=== PATIENT | female | born 1985 | race Caucasian/White ===

== ENCOUNTER 2021-01-22 15:17 | Outpatient (CLI) | payer OTHER ==
--- NOTE | 2021-01-22 16:58 | Ultrasound Report ---
PROCEDURE: OB First Trimester INDICATIONS: + PREG TEST OUTSIDE/PRIOR DATING DATA: Last menstrual period (LMP): 11/18/2020. LMP-based estimated date of delivery (DIANA): 08/25/2021. First dating scan (date and location): 01/22/2021. Estimated date of delivery (DIANA) from first dating scan: 08/23/2021. The below data below was generated using the ultrasound DIANA of 08/23/2021 TECHNIQUE: Real-time scanning was performed of the fetus and maternal pelvic organs, with image documentation. COMPARISON: None. FINDINGS: Embryo: Single living intrauterine fetus is present with a crown-rump length measuring 2.7 cm, 9 wee ks 4 days. heart rate measures 169 bpm. Perigestational hemorrhage measuring 2.2 x 2.5 x 2.6 cm . Measurement variability in dating: +/- 4 weeks by LMP, +/- 7 days by mean sac diameter (use before 6 weeks gestation if crown-rump length not able to be measured), +/- 5 days by crown-rump length (6-12 weeks gestation). Maternal organs: Ovaries unremarkable except for a presumed left-sided corpus luteum.. IMPRESSION: Single living intrauterine fetus with a gestational age measuring 9 weeks and 4 days. Ultrasound DIANA of 08/23/2021. Perigestational hemorrhage. Reviewed by: Ralph Benavidez MD on 01/22/2021 4:56 PM PDT Approved by: Ralph Benavidez MD on 01/22/2021 4:56 PM PDT Station ID: [id number]
== END 2021-01-22 15:18 | disposition home or self-care (01) ==
LOC: DI 15:17
PROVIDERS: ATTEND Obstetrics & Gynecology
DX: O20.8 Other hemorrhage in early pregnancy (principal); Z3A.09 9 weeks gestation of pregnancy

== ENCOUNTER 2021-01-29 08:00 | Outpatient (CLI) | payer OTHER ==
[2021-01-29 20:46] LABS: CHLAMYDIA TRACHOMATIS DNA NEGATIVE (NEGATIVE); NEISSERIA GONORRHOEAE DNA NEGATIVE (NEGATIVE); TRICHOMONAS VAGINALIS DNA NEGATIVE (NEGATIVE)
== END 2021-01-29 23:59 | disposition home or self-care (01) ==
LOC: LAB.WC 08:00
PROVIDERS: ATTEND Obstetrics & Gynecology
DX: Z11.3 Encounter for screening for infections with a predominantly sexual mode of transmission (principal)
CPT/HCPCS: 87491; 87591; 87661

== ENCOUNTER 2021-01-30 13:57 | Outpatient (CLI) | payer OTHER ==
[2021-01-30 14:12] LABS: MUDS CUTOFF CONCENTRATIONS CUTOFF CONC BELOW:
[2021-01-30 14:25] LABS: BASOPHILS % (AUTO) 0.1 %; EOSINOPHILS % (AUTO) 0.5 %; HCT - HEMATOCRIT 34.8 % (37.0-47.0); HGB - HEMOGLOBIN 11.7 g/dL (12.0-16.0); LYMPHOCYTES # (AUTO) 2.2 10^3/uL (1.5-3.5); MEAN CORPUSCULAR HGB CONC 33.6 g/dL (32.0-36.0); MEAN CORPUSCULAR VOLUME 92.1 fL (81.0-99.0); MEAN PLATELET VOLUME 9.6 fL (7.9-10.8); MONOCYTES # (AUTO) 0.4 10^3/uL (0.0-1.0); MONOCYTES % (AUTO) 5.1 %; NEUTROPHILS # (AUTO) 5.4 10^3/uL (1.5-6.6); NEUTROPHILS % (AUTO) 67.1 %; PLT - PLATELET COUNT 257 10^3/uL (130-450); RED BLOOD COUNT 3.78 10^6/uL (4.20-5.40); RED CELL DISTRIBUTION WIDTH 12.5 % (12.0-15.0)
[2021-01-30 14:27] LABS: BILIRUBIN,URINE NEGATIVE (NEGATIVE); GLUCOSE, URINE (UA) NEGATIVE (NEGATIVE); KETONES,URINE (UA) NEGATIVE (NEGATIVE); LEUKOCYTE ESTERASE, URINE NEGATIVE (NEGATIVE); NITRITE,URINE NEGATIVE (NEGATIVE); OCCULT BLOOD,URINE NEGATIVE (NEGATIVE); PROTEIN,URINE NEGATIVE (NEGATIVE); UROBILINOGEN,URINE 0.2 (NORMAL) E.U./dL (NORMAL)
[2021-01-30 14:28] LABS: BACTERIA,URINE None Seen /HPF (None Seen); CLARITY,URINE CLEAR (CLEAR); MUCUS,URINE Few Strands; RBC,URINE 0-5 /HPF (0-5); SQUAMOUS EPITHELIAL CELL,UR RARE Squamous (<= Few); WBC,URINE 0-3 /HPF (0-5)
[2021-01-30 14:35] LABS: AMPHETAMINE SCREEN,URINE NEGATIVE (NEGATIVE); BARBITURATE SCREEN,UR NEGATIVE (NEGATIVE); BENZODIAZEPINES SCREEN, URINE NEGATIVE (NEGATIVE); COCAINE SCREEN URINE NEGATIVE (NEGATIVE); METHADONE SCREEN, URINE NEGATIVE (NEGATIVE); METHAMPHETAMINES SCREEN, URINE NEGATIVE (NEGATIVE); OPIATE SCREEN, URINE NEGATIVE (NEGATIVE); OXYCODONE SCREEN, URINE NEGATIVE (NEGATIVE); PROPOXYPHENE SCREEN, URINE NEGATIVE (NEGATIVE); THC CANNABINOID SCREEN, URINE NEGATIVE (NEGATIVE); TRICYCLIC ANTIDEPRESSANT,URINE NEGATIVE (NEGATIVE)
[2021-01-30 14:50] LABS: % IRON SATURATION 22 % (20-50); IRON 75 ug/dL (28-170); TOTAL IRON BINDING CAPACITY 344 ug/dL (250-450); TRANSFERRIN 246 mg/dL (192-382)
[2021-01-30 14:57] LABS: THYROID STIMULATING HORMONE 0.85 uIU/mL (0.34-5.60)
[2021-01-30 15:02] LABS: FERRITIN 24.6 ng/mL (11.0-306.8)
[2021-01-31 12:43] LABS: HEPATITIS B SURFACE ANTIGEN NON-REACTIVE (NON-REACTIVE); HEPATITIS C ANTIBODY NON-REACTIVE (NON-REACTIVE)
[2021-01-31 16:07] LABS: HIV AG/AB 4TH GEN NON-REACTIVE (NON-REACTIVE)
== END 2021-01-30 13:58 | disposition home or self-care (01) ==
LOC: LAB 13:57
PROVIDERS: ATTEND Obstetrics & Gynecology
DX: O99.019 Anemia complicating pregnancy, unspecified trimester (principal); D64.9 Anemia, unspecified; Z36.89 Encounter for other specified antenatal screening; Z13.21 Encounter for screening for nutritional disorder; O99.891 Other specified diseases and conditions complicating pregnancy; R53.83 Other fatigue; O99.340 Other mental disorders complicating pregnancy, unspecified trimester; F32.9 Major depressive disorder, single episode, unspecified
CPT/HCPCS: 36415; 80306; 81001; 82306; 82728; 83540; 84443; 84466; 85025; 86592; 86762; 86787; 86803; 86850; 86900; 86901; 87086; 87340; 87389

== ENCOUNTER 2021-04-07 07:55 | Outpatient (CLI) | payer OTHER ==
--- NOTE | 2021-04-07 15:45 | Ultrasound Report ---
PROCEDURE: OB Detailed Eval INDICATIONS: SUPERVISION OF NORMAL OUTSIDE/PRIOR DATING DATA: Last menstrual period (LMP): 11/18/2020. LMP-based estimated date of delivery (DIANA): 08/25/2021. First dating scan (date and location): 01/22/2021. Estimated date of delivery (DIANA) from first dating scan: 08/23/2021. The below data below was generated using the ultrasound DIANA of 08/23/2021 TECHNIQUE: Real-time scanning was performed of the fetus, with image documentation and biometric measurements. COMPARISON: 01/22/2021 FINDINGS: General: A single live intrauterine gestation is present. Presentation: Variable, transverse Placenta: Placental position is anterior, without previa. Amniotic fluid index: 12.2 cm, within normal limits for gestational age. heart rate: 144 beats per minute. Maternal cervical canal: 5.9 cm long; normal length is 2.5 cm or more. biometrics: Biparietal diameter: 4.5 cm equals 19 weeks 4 days Head circumference: 12.5 cm equals 20 weeks 0 days Abdominal circumference: 15.3 cm across 20 weeks 4 days Femur length: 3.4 cm sequence 20 weeks 4 days Estimated gestational age from initial scan: 20 weeks 2 days Composite gestational age from present scan: 20 weeks 1 day Estimated weight and percentile: 354 g, 55th percentile Measurement variability in biometric dating: +/- 10 days from 12-20 weeks gestation, +/- 2 weeks from 20-30 weeks gestation, +/- 3 weeks at 30 weeks gestation or later. Anatomic survey: Neuro: Ventricles are normal at less than 10 mm. Cisterna magna is normal at 3-11 mm. Cerebellum i s normal in size and morphology. Nuchal skin fold: Normal at less than 6 mm between 14 and 20 weeks gestational age. Face: Nose and lips, facial profile are normal. Spine: No evidence for spina bifida. Heart: 4-chambered heart is present, with normal ventricular outflow tracts. Diaphragm: Diaphragm is intact. Stomach: Left-sided stomach is present. Kidneys: No hydronephrosis. Normal is less than 5 mm in 2nd trimester, less than 7 mm in 3rd trimester. Cord: 3 vessel cord has orthotopic insertion. Bladder: Normal in size. Extremities: All 4 extremities are visualized. IMPRESSION: Single live intrauterine . Normal interval growth compared to the prior ultrasound examination. No anatomic abnormalities are identified. Reviewed by: Alvaro Brooke MD on 04/07/2021 2:44 PM [place] Approved by: Alvaro Brooke MD on 04/07/2021 2:44 PM [place] Station ID: [id number]
== END 2021-04-07 07:56 | disposition home or self-care (01) ==
LOC: DI 07:55
PROVIDERS: ATTEND Obstetrics & Gynecology
DX: Z34.82 Encounter for supervision of other normal pregnancy, second trimester (principal)

== ENCOUNTER 2021-05-06 11:30 | Outpatient (CLI) | payer OTHER ==
[2021-05-06 11:44] VITALS: BP 113/67
--- NOTE | 2021-05-06 12:17 | PROVIDER PROGRESS NOTE ---
- HPI Chief Complaint: Maternal trauma (Patient had a fall doing the splits and landing on left hip and left side of abdomen, about 8 steps. Patient couldn't feel her feet coming down the stairs. This occurred at 9:15am.) Current : Current EDU 08/23/21 Gestation 24 Weeks and 3 Days 5 Para 4 Vital Signs Temperature 98.2 F 05/06/21 11:44 Heart Rate 73 05/06/21 11:44 Respiratory Rate 16 05/06/21 11:44 Blood Pressure 113/67 05/06/21 11:44 O2 Saturation 99 05/06/21 11:44 Temperature 98.2 F 05/06/21 11:44 Heart Rate 73 05/06/21 11:44 Respiratory Rate 16 05/06/21 11:44 Blood Pressure 113/67 05/06/21 11:44 O2 Saturation 99 05/06/21 11:44 - Exam 35 yo 24 3/7 weeks, experienced numb feet while coming down the stairs this morning at 9:15am. Patient states her left foot went out in front and her right foot behind her and she did the splits down 8 steps. She states her left arm, left hip and left side of abdomen landed on the bottom step. She did not hit the tile floor because she had two bags of [employer] candy there. Patient is feeling good movement. O: General: Patient is resting in stretcher without acute distress. Chest: Clear to auscultation. Good breath sounds in all demarco. Abdomen: Soft, good bowel sounds in all quadrants. Non-tender to palpation. No guarding or rebound. No visual bruising on abdomen. Extremities: No edema, no calf tenderness. Monitor strip: Baseline 140 with moderate variability and appropriate accelerations for gestational age. No decelerations or contractions. Ultrasound performed by [facility]. Placenta is anterior and appears normal without signs of abruption. CATHERINE is 15cm. Acitve fetus throughout ultrasound. A-IUP 24 3 with trauma to left side of Abdomen at 9:15 am. Doing well. P- Discussed results and that everything appears okay. Patient to check on Chiropracter and or massage therapy. Patient may use Tylenol for pain and take bath. Discussed she may be sore tomorrow. Patient to try to stretch back and consider support belt. Follow-up as scheduled on 05/22/21/ Call for any problems.
--- NOTE | 2021-05-06 13:40 | PROCEDURE REPORT ---
- HPI Diagnosis/Indication for NST: Other (Patient had a fall this morning.) Current EDU 08/23/21 Gestation 24 Weeks and 3 Days 5 Para 4 Vital Signs Temperature 98.2 F 05/06/21 11:44 Heart Rate 73 05/06/21 11:44 Respiratory Rate 16 05/06/21 11:44 Blood Pressure 113/67 05/06/21 11:44 O2 Saturation 99 05/06/21 11:44 Temperature 98.2 F 05/06/21 11:44 Heart Rate 73 05/06/21 11:44 Respiratory Rate 16 05/06/21 11:44 Blood Pressure 113/67 05/06/21 11:44 O2 Saturation 99 05/06/21 11:44 Patient had a fall this morning. She did splits down stairs due to not being able to feel her feet. Patient reports good movement. Patient denies SROM, Vaginal bleeding or contractions. NST: Baseline 140's with moderate variability and 10X10 accelerations. No decelerations. No contractions seen. Reactive NST and Category I monitor strip.
--- NOTE | 2021-05-06 13:44 | Ultrasound Report ---
PROCEDURE: OB Limited INDICATIONS: Fell down 8 feet of stairs DIANA 08/23/2021 OUTSIDE/PRIOR DATING DATA: Last menstrual period (LMP): 11/18/2020. LMP-based estimated date of delivery (DIANA): 08/25/2021. First dating scan (date and location): 01/22/2021. Estimated date of delivery (DIANA) from first dating scan: 08/23/2021. The below data below was generated using the ultrasound DIANA of 08/23/2021 TECHNIQUE: Real-time scanning was performed of the fetus, with image documentation. COMPARISON: OB ultrasound 01/22/2021, 04/07/2021 FINDINGS: A single living intrauterine gestation is present. Presentation: Breech Placenta: Placental position is anterior, without previa or abruption. Amniotic fluid index: 15.8 cm, within normal limits for gestational age. Largest pocket measures 5.2 cm. heart rate: 144 beats per minutes. Maternal cervical canal: 5.9 cm long; normal length is 2.5 cm or more. Estimated gestational age from initial scan: 24 weeks 3 days. IMPRESSION: 1. Single live intrauterine . 2. No evidence of placental abruption. Reviewed by: Giulia Monzon MD on 05/06/2021 1:43 PM PDT Approved by: Giulia Monzon MD on 05/06/2021 1:43 PM PDT Station ID: [id number]
== END 2021-05-06 13:40 | disposition home or self-care (01) ==
LOC: WFO 11:30 → FBP 11:33 → WFO 13:40
PROVIDERS: ATTEND Obstetrics & Gynecology
DX: O9A.212 Injury, poisoning and certain other consequences of external causes complicating pregnancy, second trimester (principal); S39.91XA Unspecified injury of abdomen, initial encounter; Z3A.24 24 weeks gestation of pregnancy; W10.8XXA Fall (on) (from) other stairs and steps, initial encounter
CPT/HCPCS: 99213

== ENCOUNTER 2021-06-16 09:44 | Outpatient (CLI) | payer OTHER ==
[2021-06-16 11:26] LABS: HCT - HEMATOCRIT 28.8 % (37.0-47.0); MEAN CORPUSCULAR HEMOGLOBIN 27.4 pg (27.0-31.0); MEAN CORPUSCULAR HGB CONC 31.3 g/dL (32.0-36.0); MEAN CORPUSCULAR VOLUME 87.5 fL (81.0-99.0); MEAN PLATELET VOLUME 9.9 fL (7.9-10.8); RED BLOOD COUNT 3.29 10^6/uL (4.20-5.40); RED CELL DISTRIBUTION WIDTH 12.6 % (12.0-15.0); WHITE BLOOD COUNT 8.6 x10^3/uL (4.8-10.8)
== END 2021-06-16 09:45 | disposition home or self-care (01) ==
LOC: LAB 09:44
PROVIDERS: ATTEND Obstetrics & Gynecology
DX: Z34.80 Encounter for supervision of other normal pregnancy, unspecified trimester (principal)
CPT/HCPCS: 36415; 82950; 85027

== ENCOUNTER 2021-07-07 09:22 | Outpatient (CLI) | payer OTHER ==
[2021-07-07 09:56] LABS: HCT - HEMATOCRIT 34.2 % (37.0-47.0); MEAN CORPUSCULAR HGB CONC 32.2 g/dL (32.0-36.0); MEAN PLATELET VOLUME 10.2 fL (7.9-10.8); RED BLOOD COUNT 3.93 10^6/uL (4.20-5.40); RED CELL DISTRIBUTION WIDTH 15.5 % (12.0-15.0); WHITE BLOOD COUNT 7.9 x10^3/uL (4.8-10.8)
[2021-07-07 10:35] LABS: % IRON SATURATION 16 % (20-50); IRON 88 ug/dL (28-170); TOTAL IRON BINDING CAPACITY 545 ug/dL (250-450); TRANSFERRIN 389 mg/dL (192-382)
== END 2021-07-07 09:23 | disposition home or self-care (01) ==
LOC: LAB 09:22
PROVIDERS: ATTEND Obstetrics & Gynecology
DX: O99.019 Anemia complicating pregnancy, unspecified trimester (principal); D64.9 Anemia, unspecified
CPT/HCPCS: 36415; 82728; 83540; 84466; 85027

== ENCOUNTER 2021-07-17 18:39 | Outpatient (CLI) | payer OTHER ==
--- NOTE | 2021-07-18 11:33 | Ultrasound Report ---
PROCEDURE: OB F/U or Repeat INDICATIONS: SCREENING FOR MACROXOMIA OUTSIDE/PRIOR DATING DATA: Last menstrual period (LMP): 11/16/2020. LMP-based estimated date of delivery (DIANA): 08/25/2021. First dating scan (date and location): 01/22/2021. Estimated date of delivery (DIANA) from first dating scan: 08/23/2021. The below data below was generated using the ultrasound DIANA of 521 TECHNIQUE: Real-time scanning was performed of the fetus, with image documentation and biometric measurements. Endovaginal scanning: Not performed COMPARISON: Ultrasound dated 01/22/2021, 04/07/2021, 05/16/2021, 07/17/2021. FINDINGS: General: A single living intrauterine gestation is present. Presentation: Breech Placenta: Placental position is anterior, without previa. Amniotic fluid index: 15.1 cm, , within normal limits. Largest pocket measures 4.9 cm heart rate: 136 beats per minute. Maternal cervical canal: 5.0 cm long; normal length is 2.5 cm or more. biometrics: Biparietal diameter: 8.73 cm, 35 weeks 2 days Head circumference: 32.85 cm, 37 weeks 2 days Abdominal circumference: 33.5 370, 37 weeks 3 days Femur length: 7.01 cm, 36 weeks 0 days Estimated gestational age from initial scan: 34 weeks 5 days. Composite gestational age from present scan: 36 weeks 4 days Estimated weight and percentile: 3037 g, 94th percentile Measurement variability in biometric dating: +/- 10 days from 12-20 weeks gestation, +/- 2 weeks from 20-30 weeks gestation, +/- 3 weeks at 30 weeks gestation or more. Other: Not applicable. IMPRESSION: Single living intrauterine fetus in breech presentation. Normal CATHERINE Estimated weight at the 94th percentile, which is suspicious for macrosomia. Previously t his measured 55th percentile on 04/07/2021. Reviewed by: Ralph Benavidez MD on 07/18/2021 11:32 AM PST Approved by: Ralph Benavidez MD on 07/18/2021 11:32 AM PST Station ID: [id number]
== END 2021-07-17 18:40 | disposition home or self-care (01) ==
LOC: DI 18:39
PROVIDERS: ATTEND Obstetrics & Gynecology
DX: Z36.88 Encounter for antenatal screening for fetal macrosomia (principal); O32.1XX0 Maternal care for breech presentation, not applicable or unspecified; Z3A.36 36 weeks gestation of pregnancy

== ENCOUNTER 2021-07-30 08:00 | Outpatient (CLI) | payer OTHER | END 2021-07-30 23:59 | disposition home or self-care (01) | LOC: LAB.WC 08:00 | PROVIDERS: ATTEND Obstetrics & Gynecology | DX: Z36.85 Encounter for antenatal screening for Streptococcus B (principal) | CPT/HCPCS: 87797 ==

== ENCOUNTER 2021-07-30 10:01 | Outpatient (CLI) | payer OTHER ==
[2021-07-30 10:29] LABS: HCT - HEMATOCRIT 36.6 % (37.0-47.0); HGB - HEMOGLOBIN 11.9 g/dL (12.0-16.0); MEAN CORPUSCULAR HEMOGLOBIN 28.2 pg (27.0-31.0); MEAN CORPUSCULAR HGB CONC 32.5 g/dL (32.0-36.0); MEAN CORPUSCULAR VOLUME 86.7 fL (81.0-99.0); MEAN PLATELET VOLUME 10.2 fL (7.9-10.8); RED BLOOD COUNT 4.22 10^6/uL (4.20-5.40); RED CELL DISTRIBUTION WIDTH 16.2 % (12.0-15.0); WHITE BLOOD COUNT 8.8 x10^3/uL (4.8-10.8)
== END 2021-07-30 10:02 | disposition home or self-care (01) ==
LOC: LAB 10:01
PROVIDERS: ATTEND Obstetrics & Gynecology
DX: O99.019 Anemia complicating pregnancy, unspecified trimester (principal); D64.9 Anemia, unspecified
CPT/HCPCS: 36415; 85027

== ENCOUNTER 2021-08-18 10:18 | Outpatient (CLI) | payer OTHER ==
[2021-08-18 10:52] LABS: BASOPHILS % (AUTO) 0.2 %; EOSINOPHILS % (AUTO) 0.5 %; HGB - HEMOGLOBIN 12.1 g/dL (12.0-16.0); LYMPHOCYTES # (AUTO) 1.8 10^3/uL (1.5-3.5); LYMPHOCYTES % (AUTO) 21.8 %; MEAN CORPUSCULAR HEMOGLOBIN 28.2 pg (27.0-31.0); MEAN CORPUSCULAR HGB CONC 32.7 g/dL (32.0-36.0); MEAN CORPUSCULAR VOLUME 86.2 fL (81.0-99.0); MEAN PLATELET VOLUME 11.3 fL (7.9-10.8); MONOCYTES # (AUTO) 0.5 10^3/uL (0.0-1.0); MONOCYTES % (AUTO) 6.6 %; NEUTROPHILS # (AUTO) 5.7 10^3/uL (1.5-6.6); NEUTROPHILS % (AUTO) 70.2 %; PLT - PLATELET COUNT 200 10^3/uL (130-450); RED BLOOD COUNT 4.29 10^6/uL (4.20-5.40); RED CELL DISTRIBUTION WIDTH 15.3 % (12.0-15.0); WHITE BLOOD COUNT 8.2 x10^3/uL (4.8-10.8)
[2021-08-18 11:05] LABS: CALCIUM 9.1 mg/dL (8.5-10.3); CREATININE 0.7 mg/dL (0.4-1.0); POTASSIUM 3.8 mmol/L (3.5-5.0)
== END 2021-08-18 10:19 | disposition home or self-care (01) ==
LOC: LAB 10:18
PROVIDERS: ATTEND Obstetrics & Gynecology
DX: Z01.812 Encounter for preprocedural laboratory examination (principal); O32.1XX0 Maternal care for breech presentation, not applicable or unspecified; Z20.822 Contact with and (suspected) exposure to COVID-19
CPT/HCPCS: 36415; 80048; 85025; 86850; 86900; 86901; 86920

== ENCOUNTER 2021-08-19 05:08 | Inpatient (IN) | payer OTHER ==
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
[2021-08-19 06:48] LABS: BASOPHILS % (AUTO) 0.1 %; EOSINOPHILS % (AUTO) 0.5 %; HCT - HEMATOCRIT 34.8 % (37.0-47.0); HGB - HEMOGLOBIN 11.5 g/dL (12.0-16.0); LYMPHOCYTES % (AUTO) 27.1 %; MEAN CORPUSCULAR HEMOGLOBIN 28.5 pg (27.0-31.0); MEAN CORPUSCULAR VOLUME 86.4 fL (81.0-99.0); MEAN PLATELET VOLUME 10.7 fL (7.9-10.8); MONOCYTES # (AUTO) 0.6 10^3/uL (0.0-1.0); MONOCYTES % (AUTO) 7.4 %; NEUTROPHILS # (AUTO) 4.7 10^3/uL (1.5-6.6); NEUTROPHILS % (AUTO) 63.8 %; PLT - PLATELET COUNT 182 10^3/uL (130-450); RED BLOOD COUNT 4.03 10^6/uL (4.20-5.40); RED CELL DISTRIBUTION WIDTH 15.1 % (12.0-15.0); WHITE BLOOD COUNT 7.4 x10^3/uL (4.8-10.8)
[2021-08-19] MEDS: LACTATED RINGERS 1,000 ML IV SCH ×2 (07:31→16:17)
[2021-08-19] MEDS ORDERED: ONDANSETRON ODT 4 MG TABLET TL PRN (07:46)
[2021-08-19] MEDS ORDERED: OXYTOCIN/SODIUM CHLORIDE 500 ML IV PRN (07:46)
[2021-08-19] MEDS ORDERED: SODIUM CHLORIDE FLUSH 0.9% 10 ML SYRINGE IVP PRN (07:46)
[2021-08-19] MEDS ORDERED: ceFAZolin 2 GM in SODIUM CHLORIDE 0.9% 100ML 100 ML IV ONE (07:49)
[2021-08-19] MEDS ORDERED: LACTATED RINGERS 1,000 ML IV SCH ×2 (08:00→10:00)
[2021-08-19] MEDS ORDERED: miSOPROStoL 200 MCG TABLET ONE ×2 (08:04→08:28)
[2021-08-19] MEDS ORDERED: METHYLERGONOVINE 0.2 MG/ML VIAL ONE ×2 (08:05→08:29)
[2021-08-19] MEDS ORDERED: BUPIVACAINE 0.5% PF 10 ML VIAL ONE (08:05)
[2021-08-19] MEDS ORDERED: CARBOPROST TROMETHAMINE 250 MCG/ML AMP IM ONE ×2 (08:05→08:29)
[2021-08-19] MEDS ORDERED: LIDOCAINE MPF 2%-EPI 1:200000 20 ML VIAL ONE (08:05)
[2021-08-19] MEDS ORDERED: CEFAZOLIN SODIUM IN 0.9 % NACL 2 GM/100 ML BAG IV ONE (08:30)
[2021-08-19] MEDS ORDERED: MORPHINE PF 5 MG/10 ML VIAL ONE (08:32)
[2021-08-19] MEDS ORDERED: fentaNYL 100 MCG/2 ML VIAL ONE (08:32)
[2021-08-19] MEDS ORDERED: MORPHINE PF 5 MG/10 ML VIAL IT ONE (08:43)
[2021-08-19] MEDS ORDERED: fentaNYL 100 MCG/2 ML VIAL IT ONE (08:43)
[2021-08-19] MEDS ORDERED: ONDANSETRON 4 MG/2 ML VIAL ONE (08:54)
[2021-08-19] MEDS ORDERED: GLYCOPYRROLATE 1 MG/5 ML VIAL ONE (08:56)
[2021-08-19] MEDS ORDERED: ceFAZolin 1 GM VIAL ONE (08:57)
[2021-08-19] MEDS ORDERED: LIDOCAINE MPF 2%-EPI 1:200000 20 ML VIAL SUBQ ONE (09:04)
[2021-08-19] MEDS ORDERED: BUPIVACAINE 0.5% PF 10 ML VIAL SUBQ ONE (09:04)
--- NOTE | 2021-08-19 09:44 | ANESTHESIA ---
Pre-Anesthesia VS, & Labs - Diagnosis breech presentation, history of shoulder dystocia - Procedure primary c/s with bilateral salpingetomy Vital Signs: Temp Pulse Resp BP Pulse Ox 98.4 C H 81 20 122/81 H 08/19/21 06:22 08/19/21 06:22 08/19/21 06:22 08/19/21 06:22 Height: 5 ft 3 in Weight (kg): 97.522 kg Body Mass Index: 38.0 BMI Classification: Obese - NPO >8 hours - Is Patient ?: Yes - Lab Results Current Lab Results: Laboratory Tests 08/19/21 06:40: WBC 7.4, RBC 4.03 L, Hgb 11.5 L, Hct 34.8 L, MCV 86.4, MCH 28.5, MCHC 33.0, RDW 15.1 H, Plt Count 182, MPV 10.7, Neut # (Auto) 4.7, Lymph # (Auto) 2.0, [place] # (Auto) 0.6, Eos # (Auto) 0.0, Baso # (Auto) 0.0, Absolute N ucleated RBC 0.00, Nucleated RBC % 0.0 Fish Bones: 08/19/21 06:40 Home Medications and Allergies Home Medications: Ambulatory Orders Ascorbic Acid [Vitamin C] 1 tab PO DAILY 08/18/21 Cholecalciferol [Vitamin D3] 1 tab PO DAILY 08/18/21 Citalopram [CeleXA] 20 mg PO DAILY 08/18/21 Famotidine 1 tab PO DAILY PRN 08/18/21 Ferrous Bis-Glycinate Chelate [Iron Glycinate] 1 tab PO DAILY 08/18/21 Metoclopramide [Reglan] 1 tab PO PRN PRN 08/18/21 hydrOXYzine HCL [Hydroxyzine HCl] 1 tab PO PRN PRN 08/18/21 Active Medications Acetaminophen (Acetaminophen 500 Mg Tablet) 1,000 mg PO Q8H [facility]ICANOR Docusate Sodium (Docusate Sodium 100 Mg Capsule) 100 mg PO BID NICANOR Lactated Ringer's (Lr) 1,000 mls @ 125 mls/hr IV .Q8H NICANOR Last Admin: 08/19/21 07:31 Dose: 125 mls/hr Documented by: Lactated Ringer's (Lr) 1,000 mls @ 100 mls/hr IV .Q10H [facility] Oxytocin/Sodium Chloride (Pitocin/Sodium Chloride) 500 mls @ 999 mls/hr IV PRN PRN; Protocol PRN Reason: POST- HEMORR PREVENTION Ibuprofen (Ibuprofen 600 Mg Tablet) 600 mg PO Q6H [facility] Ketorolac Tromethamine (Ketorolac 30 Mg/Ml Vial) 30 mg IVP Q6H [facility] Stop: 08/20/21 02:01 Ondansetron HCl (Ondansetron Odt 4 Mg Tablet) 4 mg TL Q4H PRN PRN Reason: Nausea / Vomiting Oxycodone HCl (Oxycodone 5 Mg Tablet) 5 mg PO Q4HR PRN PRN Reason: PAIN Simethicone (Simethicone Chew 80 Mg Tablet) 80 mg PO TID PRN PRN Reason: Gas Sodium Chloride (Sodium Chloride Flush 0.9% 10 Ml Syringe) 10 ml IVP 0100,0900,1700 [facility] Sodium Chloride (Sodium Chloride Flush 0.9% 10 Ml Syringe) 10 ml IVP PRN PRN PRN Reason: NEEDED PER PROVIDER ORDERS Ascorbic Acid [Vitamin C] 1 tab PO DAILY 08/18/21 Cholecalciferol [Vitamin D3] 1 tab PO DAILY 08/18/21 Citalopram [CeleXA] 20 mg PO DAILY 08/18/21 Famotidine 1 tab PO DAILY PRN 08/18/21 Ferrous Bis-Glycinate Chelate [Iron Glycinate] 1 tab PO DAILY 08/18/21 Metoclopramide [Reglan] 1 tab PO PRN PRN 08/18/21 hydrOXYzine HCL [Hydroxyzine HCl] 1 tab PO PRN PRN 08/18/21 Allergies/Adverse Reactions: Allergies Allergy/AdvReac Type Severity Reaction Status Date / Time No Known Drug Allergies Allergy Verified 08/18/21 13:27 Anes History & Medical History - Anesthetic History Anesthesia Complications: reports: No previous complications - Medical History Cardiovascular: reports: None Pulmonary: reports: None Gastrointestinal: reports: GERD (during ) Urinary: reports: None Neuro: reports: None Musculoskeletal: reports: None Endocrine/Autoimmune: reports: None Blood Disorders: reports: None Skin: reports: Herpes zoster Smoking Status: Former smoker (quit 2 years ago) Psychosocial: reports: Delusions, Anxiety History of Cancer?: No - Surgical History General: reports: Other (abdominoplasty and liposuction) Gynecologic: reports: Tubal ligation (and reversal), Breast implants Exam General: Alert, Oriented x3, Cooperative, No acute distress Dental: WNL Mouth Openin Fingerbreadth Neck Mobility: Normal Mallampati classification: II Thyromental Distance: 4-6 cm Mental/Cognitive Status: Alert/Oriented X3, Normal for patient Plan Anesthesia Type: Spinal (with ITN for post op pain) Consent for Procedure(s) Verified and Reviewed: Yes Code Status: Attempt Resuscitation ASA classification: 2-Mild systemic disease Is this case an emergency?: No
[2021-08-19] MEDS ORDERED: ATROPINE ABBOJECT 1 MG/10 ML SYRINGE IVP PRN (09:45)
[2021-08-19] MEDS ORDERED: fentaNYL 100 MCG/2 ML VIAL IVP PRN (09:45)
[2021-08-19] MEDS ORDERED: HYDROmorphone 0.5 MG/0.5 ML SYRINGE IVP PRN (09:45)
[2021-08-19] MEDS ORDERED: MORPHINE 2 MG/ML CARPUJECT IVP PRN (09:45)
[2021-08-19] MEDS ORDERED: ONDANSETRON 4 MG/2 ML VIAL IVP PRN ×2 (09:45→09:46)
[2021-08-19] MEDS ORDERED: NALOXONE 0.4 MG/ML VIAL IVP PRN ×2 (09:45→09:46)
[2021-08-19] MEDS ORDERED: OXYTOCIN 10 UNIT/ML VIAL ONE (09:46)
[2021-08-19] MEDS ORDERED: PHENYLEPHRINE 10 MG/ML VIAL ONE (09:46)
[2021-08-19] MEDS ORDERED: ePHEDrine 50 MG/ML VIAL IVP PRN (09:46)
[2021-08-19] MEDS ORDERED: diphenhydrAMINE INJ 50 MG/ML VIAL IVP PRN (09:46)
[2021-08-19] MEDS ORDERED: NALBUPHINE 10 MG/ML AMP IVP PRN (09:46)
[2021-08-19] MEDS: KETOROLAC 30 MG/ML VIAL IVP SCH ×3 (10:15→22:45)
[2021-08-19] MEDS ORDERED: KETOROLAC 30 MG/ML VIAL ONE (10:36)
[2021-08-19] MEDS ORDERED: LACTATED RINGERS 1,000 ML IV ONE (10:38)
--- NOTE | 2021-08-19 11:00 | OPERATIVE REPORT ---
Operative Report - General Admit Date: 08/19/21 Procedure Date: 08/19/21 Planned Procedure: Primary low transverse and bilateral salpingectomy Pre-Op Diagnosis: IUP at 39+1 wga, hx of complicated shoulder dystocia, suspected LGA Procedure Performed: Primary low transverse and bilateral salpingectomy Post Op Diagnosis: same and delivery of term gestation - Procedure Note Primary Surgeon: Angela Barraza MD Secondary Surgeon: Ashok Weber MD Anesthesia Provider: Paige Dacosta CRNA Anesthesia Technique: Spinal Pathology: Specimen to pathology: bilateral fallopian tubes Placenta for routine discard IV Fluids (mL): 900 Estimated Blood Loss (mL): 1,000 Urine Output (mL): 50 Indications: Patient is a 35-year-old G5, P4 at 39 weeks and 1 day by LMP and early ultrasound here for scheduled and BTL. has been complicated by suspected LGA and hx of complicated shoulder dystocia in prior delivery. US on 07/17/21 showed EFW 3037 g, 94th percentile at 34 weeks. Had been breech but has since been shown to be vertex. Desires CS given hx of shoulder dystocia with brachial plexus injury. OB HX notable for of complicated shoulder dystocia on fourth delivery. 8 pounds 10 ounce baby with one minute dystocia. Required Laury, suprapubic pressure, episiotomy, attempted posterior arm, and landis screw. No residual effects. Was followed at [facility]. Counselled on risks of vaginal delivery with possible recurrent dystocia vs planned . Decided wants CS and BTL. Findings: Normal appearing uterus and ovaries. Shortened fallopian tubes s/p tubal reversal. Female infant in vertex presentation. Weight pending. Apgars 8/9. Complications: None - Other Other Information/Narrative: Risks benefits and alternatives of the procedure were discussed. Written informed consent was obtained. Patient was taken to the operating room where spinal anesthesia was placed and found to be adequate. She was prepped and draped in the usual sterile fashion in the dorsal supine position with a leftward tilt. Martins catheter was in place. SCDs were in place and activated. Cefazolin 2 g IV was given as a preoperative antibiotic. Preoperative timeout was performed. A total of 20 cc of 2% lidocaine and 0.25% bupivicaine with epinephrine was injected into the incision. A Pfannenstiel incision was made in the skin with a scalpel and carried through the underlying layer of fascia in a combination of sharp and blunt dissection. The fascia was incised in the midline, and the incision was extended laterally with the Gross scissors. The superior aspect of the fascial incision was grasped with the Zarina clamps, elevated, and the underlying rectus muscles were dissected off bluntly and sharply using the Gross scissors. Attention was then turned to the inferior aspect of the incision which in a similar fashion was grasped, tented up with Zarina clamps, and the underlying rectus muscles dissected off bluntly and sharply using Gross scissors. The rect us muscles were then in the midline. The peritoneum was identified, tented up, and entered bluntly. The peritoneal incision was extended superiorly and inferiorly with good visualization of the bladder. The bladder that blade was then inserted. A bladder flap was not created. The lower uterine segment of the uterus was identified, and incised in a transverse fashion with a scalpel. The uterus was entered bluntly. The uterine incision was extended in a craniocaudal fashion by manual stretch. The bladder blade was removed. The infant was delivered from from vertex position. Baby was wrapped in a warm sterile towel. Delayed cord clamping was performed. After cessation of pulsations, the cord was clamped x2 and cut. The was handed off to the waiting pediatricians. The placenta was removed with manual expression. The uterus was exteriorized and cleared of all clots and debris via manual swipe using Ray-Lori x2. The uterine incision was then repaired in a running locked fashion using 0 Vicryl suture. The incisoin was reinforced with a running imbricating layer again using 0-Vicryl suture. Excellent hemostasis was obtained. Attention was then turned to the salpingectomy portion of the procedure. The left Fallopian tube was grasped with Cambria clamps and elevated. It was resected from the underlying mesosalpinx with the LigaSure bipolar sealing and cutting device until the insertion point at the uterine cornua was met. At that point, the fallopian tube was sealed and transected at ints insertion point into the uterine cornua. The tube was removed from the field. This process was repeated on the right side. Both tubes were sent in a single specimen to Pathology. The uterus was returned to the abdomen. The gutters were cleared of all clots and debris. The pelvis was irrigated with warm sloppy wet lap sponges x2. The uterine defect was well visualized in normal anatomic position it was noted again to be hemostatic. The peritoneum was then reapproximated with 2-0 Vicryl in a running fashion. The rectus muscles were then reapproximated using interrupted [id number] sutures using 2-0 Chromic. Good hemostasis was noted. The fascia was then closed using 0 Vicryl in a running fashion starting from the left lateral edge to the midline. A second suture was used to close the fascia in a running fashion starting from the right lateral edge and meeting in the midline, agian using 0-Vicryl. The subcutaneous tissue was then irrigated and closed using 2-0 chromic in a running subcutaneous suture. Skin was closed in a running subcuticular suture using 4-0 Monocryl. Steri-Strips were applied to reinforce the incision and dressing was applied. Procedure was well-tolerated and without complication. Sponge lap and needle counts were correct x2. Patient was taken to recovery room in stable condition. Dr. Weber assisted with retraction, delivery of the infant, and suturing.
--- NOTE | 2021-08-19 13:35 | ANESTHESIA POST OP EVALUATION ---
Anesthesia Post Eval - Post Anesthesia Eval Vitals: Last Vital Signs Temp 36.7 C 08/19/21 12:50 Pulse 71 08/19/21 12:50 Resp 16 08/19/21 12:50 BP 106/63 08/19/21 12:50 Pulse Ox 98 08/19/21 12:50 CV Function Including HR & BP: Stable Pain Control: Satisfactory Nausea & Vomiting: Negative Mental Status: Baseline Respiratory Status: Airway Patent Hydration Status: Satisfactory Anesthesia Complications: None
[2021-08-19] MEDS: oxyCODONE 5 MG TABLET PO PRN ×2 (14:45→19:31)
[2021-08-19] MEDS: DOCUSATE SODIUM 100 MG CAPSULE PO SCH ×2 (14:45→22:44)
[2021-08-19] MEDS: ACETAMINOPHEN 500 MG TABLET PO SCH ×2 (14:45→22:44)
[2021-08-20] MEDS: oxyCODONE 5 MG TABLET PO PRN ×4 (05:19→20:50)
[2021-08-20] MEDS: SODIUM CHLORIDE FLUSH 0.9% 10 ML SYRINGE IVP SCH ×2 (05:20→09:00)
[2021-08-20] MEDS: KETOROLAC 30 MG/ML VIAL IVP SCH (05:20)
[2021-08-20] MEDS: ACETAMINOPHEN 500 MG TABLET PO SCH ×2 (06:51→16:57)
[2021-08-20 09:10] LABS: BASOPHILS % (AUTO) 0.3 %; EOSINOPHILS % (AUTO) 0.4 %; HCT - HEMATOCRIT 29.4 % (37.0-47.0); HGB - HEMOGLOBIN 9.6 g/dL (12.0-16.0); LYMPHOCYTES # (AUTO) 1.4 10^3/uL (1.5-3.5); MEAN CORPUSCULAR HEMOGLOBIN 28.5 pg (27.0-31.0); MEAN CORPUSCULAR HGB CONC 32.7 g/dL (32.0-36.0); MEAN CORPUSCULAR VOLUME 87.2 fL (81.0-99.0); MEAN PLATELET VOLUME 10.7 fL (7.9-10.8); MONOCYTES # (AUTO) 0.5 10^3/uL (0.0-1.0); MONOCYTES % (AUTO) 6.1 %; NEUTROPHILS # (AUTO) 5.4 10^3/uL (1.5-6.6); NEUTROPHILS % (AUTO) 73.5 %; PLT - PLATELET COUNT 159 10^3/uL (130-450); RED BLOOD COUNT 3.37 10^6/uL (4.20-5.40); RED CELL DISTRIBUTION WIDTH 15.2 % (12.0-15.0); WHITE BLOOD COUNT 7.4 x10^3/uL (4.8-10.8)
[2021-08-20] MEDS: SIMETHICONE CHEW 80 MG TABLET PO PRN ×2 (09:38→16:57)
[2021-08-20] MEDS: DOCUSATE SODIUM 100 MG CAPSULE PO SCH ×2 (09:38→20:50)
[2021-08-20] MEDS: IBUPROFEN 600 MG TABLET PO SCH ×2 (11:37→18:02)
--- NOTE | 2021-08-20 12:47 | PROVIDER PROGRESS NOTE ---
Subjective - Prog Note Date Prog Note Date: 08/20/21 Prog Note Time: 08:45 - Subjective Subjective: Patient is doing well. Martins remains in place. Tolerating po. Pain well managed. Some ambulation. BF going well. Objective - Vital Signs/Intake & Output Reviewed Vital Signs: Yes Vital Signs: Vital Signs x48h Temp Pulse Resp BP BP Pulse Ox 08/20/21 10:30 98.2 F 94 18 115/78 98 08/20/21 06:33 98.2 F 70 16 106/58 L 99 08/20/21 05:15 98.2 F 70 16 106/58 L 99 Intake & Output: Intake & Output 08/17/21 08/18/21 08/19/21 08/20/21 23:59 23:59 23:59 23:59 Intake Total 3409.917 700 Output Total 1445 825 Balance 1964.917 -125 - Objective General Appearance: positive: No acute distress Respiratory: positive: No respiratory distress Cardiovascular: positive: Other (RR) Peripheral Pulses: 2+ Dorsalis pedis (R), 2+ Dorsalis pedis (L) Abdomen: positive: Other (soft and appropriately tender FF below umbilicus. Dressing CDI) Skin: positive: Color nml, Warm Extremities: positive: Non-tender, No pedal edema Neurologic/Psychiatric: positive: Oriented x3 - Lab Results Fish Bones: 08/20/21 09:05 Other Labs: Lab Results x24hrs 08/20/21 Range/Units 09:05 WBC 7.4 (4.8-10.8) x10^3/uL RBC 3.37 L (4.20-5.40) 10^6/uL Hgb 9.6 L (12.0-16.0) g/dL Hct 29.4 L (37.0-47.0) % MCV 87.2 (81.0-99.0) fL MCH 28.5 (27.0-31.0) pg MCHC 32.7 (32.0-36.0) g/dL RDW 15.2 H (12.0-15.0) % Plt Count 159 (130-450) 10^3/uL MPV 10.7 (7.9-10.8) fL Neut # (Auto) 5.4 (1.5-6.6) 10^3/uL Lymph # (Auto) 1.4 L (1.5-3.5) 10^3/uL Barron # (Auto) 0.5 (0.0-1.0) 10^3/uL Eos # (Auto) 0.0 (0.0-0.7) 10^3/uL Baso # (Auto) 0.0 (0.0-0.1) 10^3/uL Absolute Nucleated RBC 0.00 x10^3/uL Nucleated RBC % 0.0 /100WBC Assessment/Plan - Problem List (1) deliv NOS-unsp Impression: POD#1: s/p CS and BTL Doing well DC Martins this am Encourage ambulation Transition to po pain meds Anticipate DC home tomorrow
[2021-08-21] MEDS: IBUPROFEN 600 MG TABLET PO SCH ×2 (00:11→06:32)
[2021-08-21] MEDS: oxyCODONE 5 MG TABLET PO PRN ×3 (01:10→09:30)
[2021-08-21] MEDS: ACETAMINOPHEN 500 MG TABLET PO SCH ×2 (01:11→09:30)
[2021-08-21] MEDS: SIMETHICONE CHEW 80 MG TABLET PO PRN (09:00)
--- NOTE | 2021-08-21 09:01 | Discharge Plan ---
Discharge Plan Problem Reviewed?: Yes Disposition: Home, Self Care Condition: Good Prescriptions: Acetaminophen [Acetaminophen Extra Strength] 1,000 mg PO Q8H PRN #60 tablet PRN Reason: Pain Docusate Sodium 100Mg Capsule [Colace 100Mg Capsule] 100 - 200 mg PO BID PRN #60 cap PRN Reason: Constipation Ferrous Gluconate 324 mg PO BID #60 tablet Ibuprofen [Motrin] 600 mg PO Q6H PRN #60 tab PRN Reason: Pain oxyCODONE [Roxicodone] 2.5 - 5 mg PO Q4H PRN #24 tablet PRN Reason: Severe Pain Ascorbic Acid [Vitamin C] 250 mg PO BID 2 Days #60 tablet Diet: Regular Activity Restrictions: Additional Comments (see below) Shower Restrictions: Yes (see below) Driving Restrictions: Yes (see below) Additional Instructions or Follow Up instructions: PELVIC REST: Nothing in the vagina for 6 weeks: No intercourse, tampons, douching. You are at high risk of uterine infection during this time frame. WARNING SIGNS: Call for: -Fever greater than 100.5 -Pain that does not improve with pain medication -Heavy bleeding in which you are soaking a pad an hour for 2 hours in a row -Incision becomes hot, hard, red, starts to open, or leaks foul smelling fluid -Pain or swelling in one leg and not the other +/- shortness of breath or chest pain LIFTING: No lifting more than 10# for 4 weeks DRIVING: No driving while on narcotics BATHING/WOUND CARE: Ok to shower. Let water run over the incision. Do not soap, scrub, or apply lotion. Pat dry with a clean towel or pati a power hair clipper. The surgical stickers will start to peel off and you can remove them when they do. Otherwise, the provider will remove them at your one week follow-up appointment. OK to use an unscented sanitary napkin or clean washcloth to keep the incision d ry if the belly folds over the incision. No Smoking: If you smoke, Please STOP! Call for help. Follow-up with: Divya Barraza MD [Provider Admit Priv/Credential] -
--- NOTE | 2021-08-21 09:26 | PROVIDER PROGRESS NOTE ---
Subjective - Prog Note Date Prog Note Date: 08/21/21 Prog Note Time: 09:24 - Subjective Subjective: Patient is doing well. Up and ambulating. Tolerating po. Pain well managed. Voiding. BF going well. Desires DC home Objective - Vital Signs/Intake & Output Reviewed Vital Signs: Yes Vital Signs: 97.9 68 113/60 Intake & Output: Intake & Output 08/18/21 08/19/21 08/20/21 08/21/21 23:59 23:59 23:59 23:59 Intake Total 3409.917 700 Output Total 1445 1625 Balance 1964.917 -925 - Objective General Appearance: positive: No acute distress Eyes Bilateral: positive: Normal inspection Cardiovascular: positive: Other (RR) Peripheral Pulses: 2+ Dorsalis pedis (R), 2+ Dorsalis pedis (L) Abdomen: positive: Non-tender, Other (S&NT/ND. FF below umbi Dressing removed. Steris in place. CDI) Rectal: positive: Other Back: positive: Nml inspection Skin: positive: Color nml Extremities: positive: Non-tender Neurologic/Psychiatric: positive: Oriented x3 - Lab Results Fish Bones: 08/20/21 09:05 Assessment/Plan - Problem List (1) deliv NOS-unsp Impression: POD#2 s/p primary LTCS and BTL Meeting goals for discharge DC to home FU in one week Routine instructions given Rh positive/Rub imm
[2021-08-21] MEDS: DOCUSATE SODIUM 100 MG CAPSULE PO SCH (09:30)
[2021-08-21 09:36] VITALS: BP 120/71
--- NOTE | 2021-08-21 10:54 | Labor Flowsheet ---
Labor Flowsheet Datetime Report Generated by CPN: 08/21/2021 10:54 Datetime: 08/19/2021 05:30 Stage of : OB Triage VITAL SIGNS NBP Sys/Anamika/Mean (mmHg): 122 : 81 Pulse: 86 Respirations: 20 Temperature (C): 37.0 Temperature Route: Oral UTERINE ACTIVITY Monitor Mode: External Monitor Interventions for UA: [place] Adjusted Frequency (min): 1-12 Quality: Mild Duration (sec): 30-60 Pattern: Normal: <= 5 Contractions in 10 Minutes Resting Tone (Palpate): Relaxed ASSESSMENT A Monitor Mode: External US FHR Baseline Rate : 120 Variability: Moderate 6-25 bpm Accelerations: 15X15 Decelerations: None Category: Category I PAIN Pain Scale: 0 Pain Presence: None/Denies Pain Type: N/A COMMUNICATION LaborFlag: OB Triage
--- NOTE | 2021-08-26 12:25 | DISCHARGE SUMMARY ---
"Discharge Summary Admit Date: 08/18/21 Discharge Date: 08/21/21 Discharging Provider: Leslie Condition at Discharge: Good Discharge Disposition: 01 Home, Self Care - DIAGNOSES Admission Diagnoses: IUP at 39+1 wga Hx of complicated shoulder dystocia Suspected macrosomia Desires sterilization Discharge Diagnoses with Status of Each Condition: Same and delivery of term gestation - HPI History of Present Illness: Patient is a 35-year-old G5, P4 at 39 weeks and 1 day by LMP and early ultrasound here for scheduled and BTL. has been complicated by suspected LGA and hx of complicated shoulder dystocia in prior delivery. US on 07/17/21 showed EFW 3037 g, 94th percentile at 34 weeks. Had been breech but has since been shown to be vertex. Desires CS given hx of shoulder dystocia with brachial plexus injury. OB HX notable for of complicated shoulder dystocia on fourth delivery. 8 pounds 10 ounce baby with one minute dystocia. Required Laury, suprapubic pressure, episiotomy, attempted posterior arm, and landis screw. No residual effects. Was followed at [facility]. Counselled on risks of vaginal delivery with possible recurrent dystocia vs planned . Decided wants CS and BTL. - CONSULTS | PROCEDURES Procedures: Primary low transverse and bilateral tubal ligation - HOSPITAL COURSE Hospital Course: Patient was admitted at 39+1 wga for schedule primary and bilateral tubal ligation. Procedure was uncomplicated, delivering a female infant from v ertex presentation with Apgars of 8/9. BW 3892g Postoperative course was uncomplicated. By POD#2, patient and infant were meeting goals for discharge and were discharged to home. Rh positive and rubella immune. LABOR PROVIDER: ANEESH DELIVERING PROVIDER: Leslie DISCHARGING PROVIDER: LESLIE - ALLERGIES Allergies/Adverse Reactions: Allergies Allergy/AdvReac Type Severity Reaction Status Date / Time No Known Drug Allergies Allergy Verified 08/18/21 13:27 - MEDICATIONS Home Medications: Ambulatory Orders Medication Instructions Recorded Confirmed Ascorbic Acid [Vitamin C] 1 tab PO DAILY 08/18/21 08/18/21 Cholecalciferol [Vitamin D3] 1 tab PO DAILY 08/18/21 08/18/21 Citalopram [CeleXA] 20 mg PO DAILY 08/18/21 08/18/21 Famotidine 1 tab PO DAILY PRN 08/18/21 08/18/21 Ferrous Bis-Glycinate Chelate 1 tab PO DAILY 08/18/21 08/18/21 [Iron Glycinate] Metoclopramide [Reglan] 1 tab PO PRN PRN 08/18/21 08/18/21 hydrOXYzine HCL [Hydroxyzine HCl] 1 tab PO PRN PRN 08/18/21 08/18/21 Acetaminophen [Acetaminophen Extra 1,000 mg PO Q8H PRN #60 tablet 08/21/21 Strength] Acetaminophen [Acetaminophen Extra 1,000 mg PO Q8H PRN #60 tablet 08/21/21 Strength] Ascorbic Acid [Vitamin C] 250 mg PO BID 2 Days #60 tablet 08/21/21 Ascorbic Acid [Vitamin C] 250 mg PO BID 2 Days #60 tablet 08/21/21 Docusate Sodium 100Mg Capsule 100 - 200 mg PO BID PRN #60 cap 08/21/21 [Colace 100Mg Capsule] Docusate Sodium 100Mg Capsule 100 - 200 mg PO BID PRN #60 cap 08/21/21 [Colace 100Mg Capsule] Ferrous Gluconate 324 mg PO BID #60 tablet 08/21/21 Ferrous Gluconate 324 mg PO BID #60 tablet 08/21/21 Ibuprofen [Motrin] 600 mg PO Q6H PRN #60 tab 08/21/21 Ibuprofen [Motrin] 600 mg PO Q6H PRN #60 tab 08/21/21 oxyCODONE [Roxicodone] 2.5 - 5 mg PO Q4H PRN #24 tablet 08/21/21 oxyCODONE [Roxicodone] 2.5 - 5 mg PO Q4H PRN #24 tablet 08/21/21 - LABS Result Diagrams: 08/20/21 09:05 - FOLLOW UP Follow Up: [address] Barraza - TIME SPENT Time Spent in Discharge (Minutes): 30"
== END 2021-08-21 10:45 | disposition home or self-care (01) | DRG 785 ==
LOC: FBP 05:08
PROVIDERS: ADMIT Obstetrics & Gynecology; ATTEND Obstetrics & Gynecology
PROC: 0UT70ZZ Resection of Bilateral Fallopian Tubes, Open Approach (ICD-10-PCS; 2021-08-19)
PROC: 10D00Z1 Extraction of Products of Conception, Low, Open Approach (ICD-10-PCS; principal; 2021-08-19 08:30)
DX: O75.89 Other specified complications of labor and delivery (principal); Z3A.39 39 weeks gestation of pregnancy; Z87.59 Personal history of other complications of pregnancy, childbirth and the puerperium; Z03.74 Encounter for suspected problem with fetal growth ruled out; Z37.0 Single live birth
CPT/HCPCS: 36415; 85025; A9270; J2274; J7120; 88302

== ENCOUNTER 2022-02-15 11:04 | Emergency (ER) | payer OTHER ==
[2022-02-15 11:26] VITALS: BP 111/73
--- NOTE | 2022-02-15 12:07 | ED Physician Documentation ---
PD HPI LOWER EXT INJURY - Stated complaint Stated Complaint: FELL HURT FEET BILAT - Chief complaint Chief Complaint: Trauma Ext - History obtained from History obtained from: Patient, Friend - History of Present Illness PD HPI LOW EXT INJURY LOCATION: Right, Left, Foot Type of injury: Fall, Twist Where injury occurred: Home Timing - onset: Last night Timing - duration: Hours Timing - details: Abrupt onset, Still present Improved by: Rest, Ice, Immobilization Worsened by: Moving, Palpating Associated symptoms: Swelling. No: Weakness, Numbness, Tingling, Discolored Contributing factors: No: Anticoagulated, Prior ortho surgery Similar symptoms before: Has not had sx before Recently seen: Not recently seen - Additional information Additional information: 36-year-old female was walking down some steep steps in her home last night when she missed the last step and heard a crack when her feet went out from underneath her. She now has pain to both of her feet and is unable to ambulate especially so with the right foot. Review of Systems Constitutional: denies: Fever, Chills Nose: denies: Congestion Throat: denies: Sore throat Respiratory: denies: Cough GI: denies: Abdominal Pain, Vomiting, Constipation, Diarrhea : denies: Dysuria, Frequency Musculoskeletal: reports: Extremity pain, Extremity swelling, Pain with weight bearing PD PAST MEDICAL HISTORY - Past Medical History Past Medical History: Yes Cardiovascular: None Respiratory: None Neuro: None Endocrine/Autoimmune: None GI: GERD : None HEENT: None Psych: Anxiety, Panic attacks, Claustrophobia Musculoskeletal: None Derm: Herpes zoster - Past Surgical History Past Surgical History: Yes General: Other /[employer]: section, Tubal ligation, Breast implants - Present Medications Home Medications: Ambulatory Orders Medication Instructions Recorded Confirmed Ascorbic Acid [Vitamin C] 1 tab PO DAILY 08/18/21 08/18/21 Cholecalciferol [Vitamin D3] 1 tab PO DAILY 08/18/21 08/18/21 Citalopram [CeleXA] 20 mg PO DAILY 08/18/21 08/18/21 Famotidine 1 tab PO DAILY PRN 08/18/21 08/18/21 Ferrous Bis-Glycinate Chelate 1 tab PO DAILY 08/18/21 08/18/21 [Iron Glycinate] Metoclopramide [Reglan] 1 tab PO PRN PRN 08/18/21 08/18/21 hydrOXYzine HCL [Hydroxyzine HCl] 1 tab PO PRN PRN 08/18/21 08/18/21 Acetaminophen [Acetaminophen Extra 1,000 mg PO Q8H PRN #60 tablet 08/21/21 Strength] Acetaminophen [Acetaminophen Extra 1,000 mg PO Q8H PRN #60 tablet 08/21/21 Strength] Ascorbic Acid [Vitamin C] 250 mg PO BID 2 Days #60 tablet 08/21/21 Ascorbic Acid [Vitamin C] 250 mg PO BID 2 Days #60 tablet 08/21/21 Docusate Sodium 100Mg Capsule 100 - 200 mg PO BID PRN #60 cap 08/21/21 [Colace 100Mg Capsule] Docusate Sodium 100Mg Capsule 100 - 200 mg PO BID PRN #60 cap 08/21/21 [Colace 100Mg Capsule] Ferrous Gluconate 324 mg PO BID #60 tablet 08/21/21 Ferrous Gluconate 324 mg PO BID #60 tablet 08/21/21 Ibuprofen [Motrin] 600 mg PO Q6H PRN #60 tab 08/21/21 Ibuprofen [Motrin] 600 mg PO Q6H PRN #60 tab 08/21/21 oxyCODONE [Roxicodone] 2.5 - 5 mg PO Q4H PRN #24 tablet 08/21/21 oxyCODONE [Roxicodone] 2.5 - 5 mg PO Q4H PRN #24 tablet 08/21/21 - Allergies Allergies/Adverse Reactions: Allergies Allergy/AdvReac Type Severity Reaction Status Date / Time No Known Drug Allergies Allergy Verified 02/15/22 11:27 - Social History Does the pt smoke?: No Smoking Status: Never smoker PD ED PE NORMAL - Vitals Vital signs reviewed: Yes (normal ) - General General: Alert and oriented X 3, No acute distress, Well developed/nourished - HEENT HEENT: Atraumatic, PERRL, EOMI - Respiratory Respiratory: No respiratory distress - Derm Derm: Normal color, Warm and dry, No rash - Extremities Extremities: Other (There is swelling and tenderness to the right lateral foot over the 5th metatarsal mid shaft. There is an abrasion to the left foot lateral ly over the lateral talus. 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, No motor deficit, No sensory deficit, Normal speech Eye Opening: Spontaneous Motor: Obeys Commands Verbal: Oriented GCS Score: 15 - Psych Psych: Normal mood, Normal affect Results - Vitals Vitals: Vital Signs - 24 hr 02/15/22 11:23 Temperature 36.6 C Heart Rate 78 Respiratory 16 Rate Blood Pressure 111/73 O2 Saturation 100 Oxygen O2 Source Room air - Rads (name of study) bilateral feet Radiology: Prelim report reviewed (Impression: Nondisplaced right fifth metatarsal fracture.), EMP read indepedently, See rad report PD MEDICAL DECISION MAKING - ED course Complexity details: reviewed results, re-evaluated patient, considered differential, d/w patient, d/w family ED course: 36-year-old female with bilateral foot contusions has a fracture of the 5th metatarsal nondisplaced on the right side. She is placed into a walking boot on the right and ankle stirrup on the left and into her walker. She declines narcotic pain reliever. Departure - Departure Disposition: 01 Home, Self Care Clinical Impression: Metatarsal bone fracture Qualifiers: Encounter type: initial encounter Metatarsal bone: fifth Fracture type: closed Fracture alignment: nondisplaced Laterality: right Qualified Code(s): S92.354A - Nondisplaced fracture of fifth metatarsal bone, right foot, initial encounter for closed fracture Contusion of left foot Qualifiers: Encounter type: initial encounter Qualified Code(s): S90.32XA - Contusion of left foot, initial encounter Condition: Stable Instructions: ED Fx Foot, ED Boot Aircast Walker Follow-Up: AILEEN ANN MD [Primary Care Provider] - Alfonzo Bear MD [Provider Admit Priv/Credential] - Comments: Hussain, today it looks like you have a broken bone in your right foot and a sprain of the left foot. Wear the walking boot and follow up with orthopedics in the coming week. Discharge Date/Time: 02/15/22 12:35
--- NOTE | 2022-02-15 13:14 | XRAY Report ---
PROCEDURE: Foot 3 View BILAT, x-ray INDICATIONS: Trauma TECHNIQUE: 3 views of each foot was obtained COMPARISON: None FINDINGS: Bones: There is an oblique fracture through the right fifth metatarsal diaphysis without displacement . Left foot unremarkable. Normal bone mineralization present. Soft tissues: No tibiotalar joint effusion. Achilles tendon appears normal. IMPRESSION: Nondisplaced right fifth metatarsal fracture Reviewed by: Kevan Isidro MD on 02/15/2022 12:13 PM [place] Approved by: Kevan Isidro MD on 02/15/2022 12:13 PM AKDT Station ID: [id number]
== END 2022-02-15 12:35 | disposition home or self-care (01) ==
LOC: ED 11:04
DX: S92.354A Nondisplaced fracture of fifth metatarsal bone, right foot, initial encounter for closed fracture (principal); S90.32XA Contusion of left foot, initial encounter; W10.9XXA Fall (on) (from) unspecified stairs and steps, initial encounter; Y92.009 Unspecified place in unspecified non-institutional (private) residence as the place of occurrence of the external cause
CPT/HCPCS: 99283; 99284

== ENCOUNTER 2022-02-20 08:00 | Outpatient (CLI) | payer OTHER ==
--- NOTE | 2022-02-24 12:06 | XRAY Report ---
PROCEDURE: Foot 3 View BILAT INDICATIONS: Left foot sprain, right fifth metatarsal fracture. TECHNIQUE: 3 views of both feet were acquired. COMPARISON: Foot radiographs 02/15/2022. FINDINGS: Right foot: Bones: Similar appearance of the minimally displaced oblique fracture of the distal fifth metatarsal. No bridging bony callus visualized at this time. No new/interval fracture visualized. Soft tissues: No tibiotalar joint effusion. Achilles tendon appears unremarkable. Left foot: Bones: No acute fractures or dislocations. No suspicious bony lesions. Soft tissues: No tibiotalar joint effusion. Achilles tendon appears unremarkable. IMPRESSION: 1. Similar appearance of the previously demonstrated minimally displaced fracture of the right distal fifth metatarsal. 2. No acute or subacute left foot fracture visualized. Reviewed by: Won Mcfarland MD on 02/20/2022 2:51 PM PDT Approved by: Won Mcfarland MD on 02/20/2022 2:51 PM PDT Station ID: [id number]
== END 2022-02-20 23:59 | disposition home or self-care (01) ==
LOC: DI.WOS 08:00
PROVIDERS: ATTEND Physician Assistant
DX: S92.351D Displaced fracture of fifth metatarsal bone, right foot, subsequent encounter for fracture with routine healing (principal)